=== PATIENT | male | born 1950 | race Caucasian/White ===

== ENCOUNTER 2021-07-31 22:10 | Inpatient (IN) | payer MEDICARE, BC ==
[~2021-07-31] VITALS: Ht 180.3 cm; Wt 79.4 kg
[2021-08-01] MEDS ORDERED: BISA10SU11 RC (01:55)
[2021-08-01] MEDS ORDERED: POLY510P31 PO (01:56)
[2021-08-01] MEDS ORDERED: HYDR-3972 PO (01:59)
[2021-08-01] MEDS ORDERED: LISI1TAB29 PO (02:00)
[2021-08-01] MEDS ORDERED: MAG HYDROX/AL HYDROX/SIMETH 30 ML UDC PO PRN (02:00)
[2021-08-01] MEDS ORDERED: ACETAMINOPHEN 325 MG TABLET PO PRN (02:00)
[2021-08-01] MEDS ORDERED: AMLO-213 PO (02:01)
[2021-08-01] MEDS ORDERED: ATOR40TA PO (02:02)
[2021-08-01] MEDS ORDERED: [UNRECOGNIZED DRUG - CODE] PO (02:04)
[2021-08-01] MEDS ORDERED: BUPR150T10 PO (02:05)
[2021-08-01] MEDS ORDERED: ESCI10TA PO (02:12)
[2021-08-01] MEDS ORDERED: BLOOD SUGAR DIAGNOSTIC 1 EACH STRIP IN ONE (02:30)
--- NOTE | 2021-08-01 02:37 | NUR ---
GPS RN NOTE, PATIENT IS A DIRECT ADMIT AND NEEDS MED RECON APPROVED. PAGED [facility] AND INFORMED JOHN ORTEGA DNP OF MY FINDINGS. JOHN ORTEGA DNP SAID SHE WILL APPROVE THE PATIENT'S MED RECON CIELO. WILL CONTINUE TO MONITOR THIS PATIENT WITH THE HELP OF STAFF.
[2021-08-01] MEDS: clonazePAM 0.5 MG TABLET PO PRN ×2 (03:02→21:14)
--- NOTE | 2021-08-01 03:03 | NUR ---
RN NOTES: ANXIETY PT. C/O FEELING ANXIOUS , RESTLESS, PRN KLONOPIN 0.5 MG PO GIVEN , WILL CONTINUE TO MONITOR.
--- NOTE | 2021-08-01 04:09 | NUR ---
RN NOTES : ADMISSION NOTES: ADMITTED THIS 71Y/O MALE PATIENT ADMIT FROM [facility] [place] ADMITTED TO GPS ON 5150 HOLD, PER HOLD DTS, DTO,SUICIDAL IDEATION AND SEVER DEPRESSD MOOD WITH SI THOUGHTS X1 WEEK HAD PLAN WITHOUT INTENT THIS MORNING TO USE GUN TO SHOOT HIMSELF ,UPON FACE TO FACE ASSESSMENT PATIENT IS A&O X 3, DEPRESSED, COOPERTIVE ,DISHELVED ,EASILY AGITATED , POOR HYGINE , DENIES SI /HI AT THIS TIME, PT. IS POOR HISTORIAN, POOR INSIGHT ,POOR JUDGEMENT , BOTH MD AWARE AND NOTIFIED OF THE ADMISSION, BELONGINGS CONTRABAND WERE DONE , PT. REFUSED TO SIGNS ADMISSION CONSENT PAPERS DUE TO TIRED , PT. IS POOR HISTORIAN, POOR INSIGHT ,POOR JUDGEMENT , BOTH MD AWARE AND NOTIFIED OF THE ADMISSION, BELONGINGS CONTRABAND WERE DONE ,ENCOURAGED PT. TO TAKE SHOWER, PT. RIGHTS DISCUSS BY RADIOLOGIC ELECTRONIC SPECIALIST , PROVIDE THE PT. WITH HANDBOOK GUIDE, ENVIRONMENTAL SAFETY CHECK DONE, ENCOURAGED PT. VERBALIZED ANY FEELING CONCERN TO STAFF, ORIENT TO UNIT POLICY, NO ACUTE DISTRESS NOTED,VITAL SIGNS WNL ,DENIES ANY PAIN AT THIS TIME,WILL CONTINUE TO MONITOR FOR Q15 SAFETY AND BEHAVIOR.
[2021-08-01 04:20] VITALS: BP 138/76
[2021-08-01] MEDS ORDERED: HYDROCODONE/APAP 5/325MG TABLET PO PRN (06:30)
[2021-08-01] MEDS ORDERED: BISACODYL SUPP (10 MG) 10 MG/SUPP.RECT SUPP.RECT RC PRN (06:30)
--- NOTE | 2021-08-01 07:02 | NUR ---
RN NOTES: PLACE CALLED TO MR. LEONE CHRIS AND LEFT VOICE MAIL MESSAGES, REGARDING ABOUT PT. ADMIT TO DANIEL PSYCH .
[2021-08-01 07:04] LABS: BASOPHILS % (AUTO) 0.5 % (0.0-2.0); EOSINOPHILS % (AUTO) 1.8 % (0.0-6.0); HEMATOCRIT 33 % (39-51); HEMOGLOBIN 10.7 g/dL (13.5-17.5); LYMPHOCYTES # (AUTO) 1.2 K/uL (0.8-4.8); LYMPHOCYTES % (AUTO) 17.2 % (20.0-44.0); MEAN CORPUSCULAR HGB CONC 33 g/dl (31.0-36.0); MEAN CORPUSCULAR VOLUME 94 fL (80-96); MONOCYTES # (AUTO) 1.3 K/uL (0.1-1.30); MONOCYTES % (AUTO) 19.1 % (2.0-12.0); NEUTROPHILS # (AUTO) 4.3 K/uL (1.8-8.9); NEUTROPHILS % (AUTO) 61.4 % (43.0-81.0); PLATELET COUNT (AUTO) 365 K/uL (150-450); RED BLOOD CELL COUNT(AUTO) 3.45 MIL/uL (4.5-6.0)
--- NOTE | 2021-08-01 07:04 | NUR ---
RN NOTES: PLACE CALLED TO MR. LEONE CHRIS AND LEFT VOICE MAIL MESSAGE AT, REGARDING ABOUT PT. ADMIT TO DANIEL PSYCH .
[2021-08-01 07:13] LABS: CALCIUM, SERUM 8.5 mg/dL (8.5-10.1); CARBON DIOXIDE 28 mmol/L (21-32); CHLORIDE 99 mmol/L (98-107); CREATININE 0.7 mg/dL (0.6-1.3); GLUCOSE 135 mg/dL (74-106); POTASSIUM 3.5 mmol/L (3.5-5.1); SODIUM SERUM 131 mmol/L (136-145); UREA NITROGEN, BLOOD 7 mg/dL (7-18)
[2021-08-01 07:42] LABS: CHOLESTEROL 99 mg/dL (<200); HDL CHOLESTEROL 43 mg/dL (40-60); LDL 46 mg/dL (0-99); TRIGLYCERIDES 57 mg/dL (30-150)
--- NOTE | 2021-08-01 07:43 | NUR ---
WOUND CARE CONSULT: PT PRESENTS WITH RT BUTTOCK ESCHAR AND INDURATION. PT STATES THAT HE FELL PRIOR TO ADMISSION TO [facility]. NO DRAINAGE NOTED. SURGICAL CONSULT REQUESTED FROM DR KATIA VARGAS. IN AGREEMENT WITH PLAN OF CARE.
[2021-08-01 08:00] VITALS: BP 144/79
[2021-08-01] MEDS ORDERED: PROBENECID 500 MG TABLET PO SCH (09:00)
--- NOTE | 2021-08-01 09:22 | NUR ---
TOM Initial Discharge: Patient currently resides at home alone located at [address] [address] [facility], [place] [address]; ([phone]). Patient would want to return back home upon discharge. TOM will work with the MD and treatment team to coordinate appropriate discharge. Addendum: 08/01/21 at 1107 by TOM IQBAL Patient's correct address: Patient will return back home located at [address] [place] [address], [address]; ([phone]).
--- NOTE | 2021-08-01 09:48 | NUR ---
TOM Friend Contact: Per pt's request he wanted this documentation writer to notify childhood friend Chadwick ([phone]) that he is at the hospital. SW spoke with Chadwick and notified that pt is at the hospital. He is aware. TOM briefly discussed treatment/discharge plan.
--- NOTE | 2021-08-01 09:51 | NUR ---
TOM Family Contact: Per pt's request, he wanted this lyric writer to contact sister Adriana ([phone]) and this lyric writer left a voicemail.
[2021-08-01] MEDS: ATORVASTATIN 40 MG TABLET PO SCH (10:08)
[2021-08-01] MEDS: AMLODIPINE BESYLATE 10 MG TABLET PO SCH (10:09)
[2021-08-01] MEDS: LISINOPRIL (20MG) 20 MG TABLET PO SCH (10:09)
[2021-08-01] MEDS: HYDROCHLOROTHIAZIDE 25 MG TABLET PO SCH (10:09)
--- NOTE | 2021-08-01 10:14 | NUR ---
Social Work Note/Substance Abuse Intervention: Patient was provided with a brief substance abuse intervention and referred to [facility] ([phone]), [facility] ([phone]), and [facility] ([phone]) for having history of drinking and drinking occasionally.
[2021-08-01] MEDS ORDERED: COLCHICINE 0.6 MG TABLET PO SCH (10:30)
--- NOTE | 2021-08-01 10:36 | NUR ---
POLICE STATION: TOM CONTACTED [place] [employer]ICE DEPARTMENT ([phone]) AND SPOKE WITH OFFICER NTAALIA (BADGE #[id number]) WHO STATED REPORT WAS TAKEN #[id number] AND STATED THAT MULTIPLE GUNS WERE CONFISCATED FROM HIS HOME.
--- NOTE | 2021-08-01 11:05 | NUR ---
TOM Note: SW offered pt resources such as home health upon discharge. He stated "I am totally capable of taking care of myself and do not need these services".
--- NOTE | 2021-08-01 11:07 | NUR ---
TOM Clinical Note: Patient placed on a 5150 hold for danger to himself. Patient had thoughts of harming himself with a gun at home. Patient's correct address: Patient will return back home located at [facility] [address], [place], [address]; ([phone]). TOM confirmed with police department in [place] that guns have been removed from the house (separate note is in [facility] of more information).
[2021-08-01] MEDS: ESCITALOPRAM OXALATE (10 MG) 10 MG TABLET PO SCH (11:15)
[2021-08-01] MEDS: buPROPion 75 MG TABLET PO SCH ×2 (11:15→17:25)
[2021-08-01 16:00] VITALS: BP 132/71
[2021-08-01] MEDS: MAGNESIUM HYDROXIDE 30 ML UDC PO PRN (17:25)
--- NOTE | 2021-08-01 17:26 | NUR ---
RN-NOTES PATIENT C/O CONSTIPATION. MOM 30 ML GIVEN PRN ORDER.
--- NOTE | 2021-08-01 17:50 | NUR ---
RNM-NOTES PATIENT LAYING IN BED AWAKE,ALERT,GUARDED,CALM NO ACUTE DISTRESS NOTED. COMPLIANT WITH MEDICATIONS. ABLE TO MAKE NEEDS KNOWN. AMBULATORY STEADY GAIT.ALL NEEDS ATTENDED AND ANTICIPATED. WILL CONT. MONITORING FOR SAFETY AND BEHAVIOR. WILL ENDORSED TO INCOMING NURSE FOR CONTINUITY OF CARE.
--- NOTE | 2021-08-01 18:28 | NUR ---
RN-NOTES SEEN BY RUDDY YOUNGBLOOD ( SURGEON) WITH T.O ORDER OF HOT PACKS APPLY TO RIGHT BUTTOCKS X4 TIMES A DAY. NOTED AND CARRIED OUT.
--- NOTE | 2021-08-01 19:48 | NUR ---
RN NOTES: PATIENT WALKING IN HALLWAY , NO S/SX OF ACUTE DISTRESS NOTED. COOPERTIVE NOTED AT THIS TIME, DEPRESSED, DENIES SI //HI AT THIS TIME ENCOURAGED PT. TO VERBALIZATION OF THOUGHTS AND FEELINGS. SAFETY PRECAUTIONS IN PLACE. WILL CONTINUE TO MONITOR Q15MIN ROUNDS FOR SAFETY AND BEHAVIOR.
[2021-08-01 20:12] VITALS: BP 124/80
--- NOTE | 2021-08-01 21:14 | NUR ---
RN NOTES: ANXIETY PT. C/O FEELING ANXIOUS , RESTLESS, PRN KLONOPIN 0.5 MG PO GIVEN , WILL CONTINUE TO MONITOR.
--- NOTE | 2021-08-01 22:00 | NUR ---
RN NOTES: PT. REPORTED HAS BM X 1, DENIES ANY DISCOMFORT ,
--- NOTE | 2021-08-01 22:30 | NUR ---
RN NOTES: HOT PACK APPLIED TO RIGHT BUTTOCK PER JESSE REQUEST AND PER MD ORDER .
[2021-08-01] MEDS: TEMAZEPAM 7.5 MG CAPSULE PO PRN (23:41)
--- NOTE | 2021-08-01 23:41 | NUR ---
RN NOTES: INSOMNIA: PT. C/O UNABLE TO SLEEP , PRN RESTORIL 7.5 MG PO GIVEN PER PT. REQUEST, WILL CONTINUE TO MONITOR.
--- NOTE | 2021-08-02 03:52 | NUR ---
RN NOTES : PT. C/O RIGHT HIP PAIN 09/21 , NARCO GIVEN PER PT. REQUEST , WILL CONTINUE TO MONITOR.
--- NOTE | 2021-08-02 05:00 | NUR ---
RN NOTES: HOT PACK APPLIED TO RIGHT BUTTOCK PER PATIENT REQUEST AND PER MD ORDER, PATIENT TOLERATED WELL.
[2021-08-02 07:01] LABS: BASOPHILS % (AUTO) 0.5 % (0.0-2.0); EOSINOPHILS % (AUTO) 1.7 % (0.0-6.0); HEMATOCRIT 36 % (39-51); HEMOGLOBIN 12.2 g/dL (13.5-17.5); LYMPHOCYTES # (AUTO) 1.5 K/uL (0.8-4.8); LYMPHOCYTES % (AUTO) 19.4 % (20.0-44.0); MEAN CORPUSCULAR HGB CONC 34 g/dl (31.0-36.0); MEAN CORPUSCULAR VOLUME 93 fL (80-96); MONOCYTES # (AUTO) 1.3 K/uL (0.1-1.30); MONOCYTES % (AUTO) 16.6 % (2.0-12.0); NEUTROPHILS # (AUTO) 4.9 K/uL (1.8-8.9); NEUTROPHILS % (AUTO) 61.8 % (43.0-81.0); PLATELET COUNT (AUTO) 402 K/uL (150-450); RED BLOOD CELL COUNT(AUTO) 3.93 MIL/uL (4.5-6.0); WHITE BLOOD COUNT (AUTO) 7.9 K/uL (4.3-11.0)
[2021-08-02 07:33] LABS: CALCIUM, SERUM 9.2 mg/dL (8.5-10.1); CREATININE 0.8 mg/dL (0.6-1.3); MAGNESIUM 2.3 mg/dL (1.8-2.4); PHOSPHORUS 4.3 mg/dL (2.5-4.9); POTASSIUM 3.5 mmol/L (3.5-5.1)
[2021-08-02 08:00] VITALS: BP 129/77
[2021-08-02] MEDS: ATORVASTATIN 40 MG TABLET PO SCH (08:12)
[2021-08-02] MEDS: ESCITALOPRAM OXALATE (10 MG) 10 MG TABLET PO SCH (08:12)
[2021-08-02] MEDS: LISINOPRIL (20MG) 20 MG TABLET PO SCH (08:13)
[2021-08-02] MEDS: HYDROCHLOROTHIAZIDE 25 MG TABLET PO SCH (08:13)
[2021-08-02] MEDS: AMLODIPINE BESYLATE 10 MG TABLET PO SCH (08:13)
[2021-08-02] MEDS: buPROPion 75 MG TABLET PO SCH ×2 (08:15→16:21)
[2021-08-02] MEDS ORDERED: AMLODIPINE BESYLATE 5 MG TABLET PO SCH (09:00)
--- NOTE | 2021-08-02 09:30 | NUR ---
RN-NOTES T.O ORDER FROM DR. GARCIA TO D/C NORVASC 5MG DAILY. NOTED AND CARRIED OUT.
[2021-08-02] MEDS: clonazePAM 0.5 MG TABLET PO PRN ×2 (12:48→20:26)
--- NOTE | 2021-08-02 12:50 | NUR ---
RN-NOTES PATIENT C/O OF ANXIETY AND REQUESTING FOR MEDICATION. KLONOPIN 0.5MG P.O GIVEN PRN ORDER. WILL CONT. MONITORING FOR SAFETY AND BEHAVIOR.
[2021-08-02] MEDS ORDERED: IV NS 0.9% 1,000 ML IV SCH (13:30)
--- NOTE | 2021-08-02 13:50 | NUR ---
RN-NOTES PATIENT IN THE DAY ROOM WATCHING TV,CALM,NO ACUTE DISTRESS NOTED.
--- NOTE | 2021-08-02 14:07 | NUR ---
Dr. Hauser changed the order of NS 1 liter @ 100ml/hr x1 liter
[2021-08-02] MEDS ORDERED: IV NS 0.9% 1,000 ML IV ONE (14:30)
--- NOTE | 2021-08-02 14:30 | NUR ---
IV of Gauge #22 started on the right forearm, with good blood return and pt. tolerated well.
[2021-08-02 16:00] VITALS: BP 138/59
--- NOTE | 2021-08-02 17:51 | NUR ---
RN-NOTES PATIENT LAYING IN BED AWAKE,ALERT X3,WITH ONGOING IV FLUID OF 0.9% NS @ 100ML/HR, INFUSING WELL,WELL TOLERATED. IV SITE ON RIGHT RA GAUGE 22. NO S/S OF COMPLICATION NOTED ON THE IV SITE.,CALM NO ACUTE DISTRESS NOTED. COMPLIANT WITH MEDICATIONS. ABLE TO MAKE NEEDS KNOWN. AMBULATORY STEADY GAIT.ALL NEEDS ATTENDED AND ANTICIPATED. WILL CONT. MONITORING FOR SAFETY AND BEHAVIOR. WILL ENDORSED TO INCOMING NURSE FOR CONTINUITY OF CARE.
--- NOTE | 2021-08-02 19:43 | NUR ---
RN-NOTES RECEIVED PT.WITH ONGOING IV FLUID OF 0.9% NS @ 100ML/HR, INFUSING AND TOLERATED WELL, IV SITE ON RIGHT FA GAUGE #22., PT. AWAKE ALERT X3, NO S/S OF COMPLICATION NOTED ON THE IV SITE.CALM COOPERTIVE NO ACUTE DISTRESS NOTED. COMPLIANT WITH MEDICATIONS .ALL NEEDS ATTENDED AND ANTICIPATED. WILL CONT. MONITORING FOR SAFETY AND BEHAVIOR. WILL CONTINUITY WITH CARE.
[2021-08-02 20:15] VITALS: BP 135/60
--- NOTE | 2021-08-02 20:26 | NUR ---
RN NOTE: ANXIETY PT. C/O FEELING ANXIOUS , RESTLESS, PRN KLONOPIN 0.5 MG PO GIVEN , WILL CONTINUE TO MONITOR.
--- NOTE | 2021-08-02 21:00 | NUR ---
RN NOTES: HOT PACK APPLIED TO RIGHT BUTTOCK PER PATIENT REQUEST AND PER MD ORDER, PATIENT TOLERATED WELL.
[2021-08-02] MEDS: TEMAZEPAM 7.5 MG CAPSULE PO PRN (23:13)
--- NOTE | 2021-08-02 23:14 | NUR ---
RN NOTES: INSOMNIA: PT. C/O UNABLE TO SLEEP , PRN RESTORIL 7.5 MG PO GIVEN PER PT. REQUEST, WILL CONTINUE TO MONITOR.
--- NOTE | 2021-08-03 04:09 | NUR ---
RN-NOTES PT. IV FLUID OF 0.9% NS FINISHED, PT. TOLERATED WELL, PT. SLEEPING AT THIS TIME, NO S/S OF COMPLICATION NOTED, NO ACUTE DISTRESS NOTED. COMPLIANT WITH MEDICATIONS .ALL NEEDS ATTENDED AND ANTICIPATED.
--- NOTE | 2021-08-03 06:40 | NUR ---
RN NOTES: HOT PACK APPLIED TO RIGHT BUTTOCK PER PATIENT REQUEST AND PER MD ORDER, PATIENT TOLERATED WELL.
[2021-08-03 07:19] LABS: CARBON DIOXIDE 30 mmol/L (21-32); CHLORIDE 96 mmol/L (98-107); CREATININE 0.6 mg/dL (0.6-1.3); GLUCOSE 105 mg/dL (74-106); POTASSIUM 3.3 mmol/L (3.5-5.1); SODIUM SERUM 132 mmol/L (136-145); UREA NITROGEN, BLOOD 9 mg/dL (7-18)
[2021-08-03 08:00] VITALS: BP 120/70
[2021-08-03] MEDS: ESCITALOPRAM OXALATE (10 MG) 10 MG TABLET PO SCH (08:24)
[2021-08-03] MEDS: LISINOPRIL (20MG) 20 MG TABLET PO SCH (08:24)
[2021-08-03] MEDS: AMLODIPINE BESYLATE 10 MG TABLET PO SCH (08:24)
[2021-08-03] MEDS: ATORVASTATIN 40 MG TABLET PO SCH (08:24)
[2021-08-03] MEDS: buPROPion 75 MG TABLET PO SCH ×2 (08:25→16:25)
--- NOTE | 2021-08-03 09:03 | NUR ---
RN-CO: PATIENT IS AWAKE , DENIED PAIN AND DISCOMFORTS. SPOKE TO DT MODESTO I. AFFECT IS BLUNTED , DEPRESSED, WORRIED, HE IS COMPLIANT WITH MEDICATIONS AND TREATMENT. ENCOURAGED TO VENTILATE FEELINGS. I WILL CONTINUE TO MONITOR.
[2021-08-03] MEDS ORDERED: POTASSIUM CHLORIDE 20 MEQ TAB.PRT.SR PO SCH (09:30)
[2021-08-03 16:00] VITALS: BP 131/74
--- NOTE | 2021-08-03 19:20 | NUR ---
GPS RN NOTES RECEIVED PATIENT IN BED AWAKE, A/OX3, ABLE TO MAKE NEEDS KNOWN. NO S/SX OF ACUTE DISTRESS NOTED. PATIENT IS VISIBLE IN THE UNIT. REMAINS ANXIOUS, DEPRESSED, COOPERATIVE. NO VERBALIZATION OF THOUGHTS AND FEELINGS. ENCOURAGED PT TO ATTEND IN GROUP ACTIVITIES. SAFETY PRECAUTIONS IN PLACE. WILL CONTINUE TO MONITOR Q15MIN ROUNDS FOR SAFETY AND BEHAVIOR.
[2021-08-03 19:48] VITALS: BP 148/86
[2021-08-04] MEDS: clonazePAM 0.5 MG TABLET PO PRN (02:25)
[2021-08-04 08:00] VITALS: BP 117/66
[2021-08-04] MEDS: LISINOPRIL (20MG) 20 MG TABLET PO SCH (08:46)
[2021-08-04] MEDS: ESCITALOPRAM OXALATE (10 MG) 10 MG TABLET PO SCH (08:46)
[2021-08-04] MEDS: ATORVASTATIN 40 MG TABLET PO SCH (08:46)
[2021-08-04] MEDS: AMLODIPINE BESYLATE 10 MG TABLET PO SCH (08:47)
[2021-08-04] MEDS: buPROPion 75 MG TABLET PO SCH ×2 (08:47→16:07)
--- NOTE | 2021-08-04 15:26 | NUR ---
Individual Counseling: SW met with pt. to facilitate individual counseling. The pt. is alert & oriented, Pt. appears well-groomed, remained calm & cooperative. Pt. makes good eye contact and anxious at times. tail worker highlighted important factors shared by pt. and linked these to his presenting problem.
[2021-08-04 16:00] VITALS: BP 122/75
[2021-08-04 19:38] VITALS: BP 147/70
--- NOTE | 2021-08-04 20:09 | NUR ---
GPS RN OPENING NOTES: RECEIVED PATIENT IN BED, AWAKE, A/O X3, APPEARS DEPRESSED, CALM. NO S/S OF DISTRESS. DENIES PAIN AT THIS TIME, DENIES SI/HI AT THIS TIME. RESPIRATION EVEN AND UNLABORED WITH EQUAL RISE AND FALL OF THE CHEST, ON ROOM AIR. OFFERED FLUID AND SNACKS TOLERATED. BED ON LOWEST POSITION AND LOCKED, SIDE RAILS UP X2 FOR SAFETY, CALL FAYE WITHIN REACH. WILL CONTINUE TO MONITOR Q15 FOR MOOD, SAFETY AND BEHAVIOR.
[2021-08-04] MEDS: TEMAZEPAM 7.5 MG CAPSULE PO PRN (22:45)
--- NOTE | 2021-08-04 22:50 | NUR ---
GPS RN NOTES: PATIENT REQUESTED FOR SLEEP MEDICATION, RESTORIL 7.5MG GIVEN PO AT 2245. WILLCONTINUE TO MONITOR.
[2021-08-05 07:18] LABS: CALCIUM, SERUM 9.3 mg/dL (8.5-10.1); CARBON DIOXIDE 31 mmol/L (21-32); CHLORIDE 98 mmol/L (98-107); CREATININE 0.8 mg/dL (0.6-1.3); GLUCOSE 103 mg/dL (74-106); POTASSIUM 4.5 mmol/L (3.5-5.1); SODIUM SERUM 134 mmol/L (136-145); UREA NITROGEN, BLOOD 10 mg/dL (7-18)
[2021-08-05 08:00] VITALS: BP 126/76
[2021-08-05] MEDS: AMLODIPINE BESYLATE 10 MG TABLET PO SCH (08:04)
[2021-08-05] MEDS: buPROPion 75 MG TABLET PO SCH ×2 (08:04→16:19)
[2021-08-05] MEDS: ESCITALOPRAM OXALATE (10 MG) 10 MG TABLET PO SCH (08:05)
[2021-08-05] MEDS: ATORVASTATIN 40 MG TABLET PO SCH (08:05)
[2021-08-05] MEDS: LISINOPRIL (20MG) 20 MG TABLET PO SCH (08:09)
--- NOTE | 2021-08-05 11:03 | NUR ---
Court Notification: SW contacted pt's person to notify Chadwick, friend, ([phone]) to notify of 5250 hearing and left a voicemail.
[2021-08-05 16:00] VITALS: BP 138/86
--- NOTE | 2021-08-05 19:32 | NUR ---
GPS RN OPENING NOTES: RECEIVED PATIENT IN DAY ROOM WATCHING TV WITH PEERS, A/O X3, APPEARS DEPRESSED, PASSIVE, COOPERATIVE. PATIENT ENCOURAGED TO VERBALIZE FEELINGS. NO S/S OF DISTRESS. DENIES PAIN AT THIS TIME, DENIES SI/HI AT THIS TIME. RESPIRATION EVEN AND UNLABORED WITH EQUAL RISE AND FALL OF THE CHEST, ON ROOM AIR. OFFERED FLUID AND SNACKS TOLERATED. WILL CONTINUE TO MONITOR Q15 FOR MOOD, SAFETY AND BEHAVIOR. Addendum: 08/05/21 at 2304 by TA CARLSON RN DISREGARD. CHARTED UNDER ANOTHER STAFF
[2021-08-05 20:22] VITALS: BP 112/70
[2021-08-05] MEDS: TEMAZEPAM 7.5 MG CAPSULE PO PRN (23:16)
--- NOTE | 2021-08-05 23:17 | NUR ---
GPS RN NOTES: Patient requested for sleep med. Restoril 7.5mg given PO at 2316. Will continue to monitor.
[2021-08-06 08:00] VITALS: BP 139/78
[2021-08-06] MEDS: AMLODIPINE BESYLATE 10 MG TABLET PO SCH (08:24)
[2021-08-06] MEDS: buPROPion 75 MG TABLET PO SCH ×2 (08:24→17:08)
[2021-08-06] MEDS: ATORVASTATIN 40 MG TABLET PO SCH (08:25)
[2021-08-06] MEDS: ESCITALOPRAM OXALATE (10 MG) 10 MG TABLET PO SCH (08:25)
[2021-08-06] MEDS: LISINOPRIL (20MG) 20 MG TABLET PO SCH (08:25)
--- NOTE | 2021-08-06 08:26 | NUR ---
Court Hearing: Patient's court hearing was 08/05/2021 and it was upheld for danger to self.
--- NOTE | 2021-08-06 10:18 | NUR ---
RN-CO: PATIENT A/O X3-4. WORRIED, PREOCCUPIED AND DEPRESSED BUT DENIED SI. HE EATS GOOD AND PARTICIPATE IN GROUPS. HE IS SOCIALIZING WITH PEERS.
--- NOTE | 2021-08-06 10:30 | NUR ---
SW Note: SW offered pt nursing facility options and pt reported that he wants to go back home and does not need a nursing facility. He reported that he is fully able to take care of his needs and has support. SW offered home health resources and he was agreeable of this.
[2021-08-06] MEDS: MAGNESIUM HYDROXIDE 30 ML UDC PO PRN (14:28)
--- NOTE | 2021-08-06 14:28 | NUR ---
RNWendiCO: PT Requested for MOM.
[2021-08-06 16:00] VITALS: BP 129/66
[2021-08-06 20:00] VITALS: BP 135/75
[2021-08-06] MEDS: TEMAZEPAM 7.5 MG CAPSULE PO PRN (23:19)
--- NOTE | 2021-08-07 05:49 | NUR ---
Closing Notes: Alert and Oriented X4 ambulates the corridor steady on his feet make his needs known Quick to smile socializes with his roommate
[2021-08-07 08:00] VITALS: BP 145/75
[2021-08-07] MEDS: ATORVASTATIN 40 MG TABLET PO SCH (08:20)
[2021-08-07] MEDS: LISINOPRIL (20MG) 20 MG TABLET PO SCH (08:20)
[2021-08-07] MEDS: ESCITALOPRAM OXALATE (10 MG) 10 MG TABLET PO SCH (08:20)
[2021-08-07] MEDS: buPROPion 75 MG TABLET PO SCH ×2 (08:20→16:31)
[2021-08-07] MEDS: AMLODIPINE BESYLATE 10 MG TABLET PO SCH (08:21)
--- NOTE | 2021-08-07 10:15 | NUR ---
RN Notes: Received pt. awake in bed, pleasant upon approached. Ate 100% for breakfast, compliant on meds. Encouraged to verbalize feelings and motivated to attend group activity. Needs attended, no distress and no agitation noted and will continue to monitor for safety.
[2021-08-07 16:00] VITALS: BP 121/80
[2021-08-07 20:00] VITALS: BP 128/73
--- NOTE | 2021-08-07 20:14 | NUR ---
RN NOTES: PATIENT WATCHING TV IN DAY ROOM. NO S/SX OF ACUTE DISTRESS NOTED. PATIENT IS VISIBLE IN THE UNIT. REMAINS ANXIOUS, DEPRESSED, COOPERATIVE. NO VERBALIZATION OF THOUGHTS AND FEELINGS. ENCOURAGED PT TO ATTEND IN GROUP ACTIVITIES. SAFETY PRECAUTIONS IN PLACE. WILL CONTINUE TO MONITOR Q15MIN ROUNDS FOR SAFETY AND BEHAVIOR.
[2021-08-07] MEDS: TEMAZEPAM 7.5 MG CAPSULE PO PRN (22:57)
--- NOTE | 2021-08-07 22:58 | NUR ---
RN NOTES: INSOMNIA: PT. C/O UNABLE TO SLEEP , PRN RESTORIL 7.5 MG PO GIVEN PER PT. REQUEST, WILL CONTINUE TO MONITOR.
[2021-08-08 08:00] VITALS: BP 122/72
--- NOTE | 2021-08-08 08:57 | NUR ---
TOM Coordination of Care: Patient will follow up with (Manager Transportation Planning) Dr. Gerda Bird located at [address] [facility], [address], [place] [address]; ([phone]) on August 19, 2021, at 10AM. Patient was referred to for intake evaluation (Psychiatry) at [facility] located at [address] [place] [address]; ([phone]) on August 18 at 1:30PM via TELEHEALTH. SW sent patient up with [facility] was arranged (P:[phone], F: [phone]) for medication management, physical therapy, and nursing follow ups they will follow up with pt.
--- NOTE | 2021-08-08 09:00 | NUR ---
GPS/RN RECEIVED PT RESTING IN BED, NO S/S DISTRESS NOTED. DENIES SI/HI/AVH. ALERT,GUARDED,CALM NO ACUTE DISTRESS NOTED. COMPLIANT WITH DAILY MEDS. AMBULATORY STEADY GAIT.ALL NEEDS ATTENDED AND ANTICIPATED. WILL CONTINUE MONITORING Q15MIN FOR SAFETY AND BEHAVIOR.
[2021-08-08] MEDS: ESCITALOPRAM OXALATE (10 MG) 10 MG TABLET PO SCH (09:35)
[2021-08-08] MEDS: buPROPion 75 MG TABLET PO SCH ×2 (09:35→17:52)
[2021-08-08] MEDS: ATORVASTATIN 40 MG TABLET PO SCH (09:35)
[2021-08-08] MEDS: AMLODIPINE BESYLATE 10 MG TABLET PO SCH (09:36)
[2021-08-08] MEDS: LISINOPRIL (20MG) 20 MG TABLET PO SCH (09:36)
--- NOTE | 2021-08-08 10:26 | NUR ---
TOM Family Contact: TOM contacted pt's sister Adriana ([phone]) and notified of pt's discharge plan. TOM left a voicemail. TOM contacted pt's son Jackson ([phone]) and notified of pt's discharge and plan. He is aware and agreeable. He stated that he will pick pt up 08/12 between 9-9:30AM and this is the only time due to him having work.
--- NOTE | 2021-08-08 14:17 | NUR ---
TOM Family Contact: SW received a call from pt's sister Adriana ([phone]) and discussed pt's discharge and treatment plan.
[2021-08-08 16:00] VITALS: BP 116/78
[2021-08-08 20:00] VITALS: BP 132/56
--- NOTE | 2021-08-08 20:07 | NUR ---
RN NOTES: PATIENT WATCHING TV IN DAY ROOM. NO S/SX OF ACUTE DISTRESS NOTED. PATIENT IS VISIBLE IN THE UNIT, CALM/COOPERATIVE AT THIS TIME, PER PT. FEELING BETTER ,NO VERBALIZATION OF THOUGHTS AND FEELINGS. ENCOURAGED PT. TO ATTEND IN GROUP ACTIVITIES. SAFETY PRECAUTIONS IN PLACE. WILL CONTINUE TO MONITOR Q15MIN ROUNDS FOR SAFETY AND BEHAVIOR.
[2021-08-08] MEDS: TEMAZEPAM 7.5 MG CAPSULE PO PRN (22:39)
--- NOTE | 2021-08-08 22:40 | NUR ---
RN NOTES: INSOMNIA: PT. C/O UNABLE TO SLEEP , PRN RESTORIL 7.5 MG PO GIVEN PER PT. REQUEST, WILL CONTINUE TO MONITOR.
[2021-08-09 08:00] VITALS: BP 131/72
[2021-08-09] MEDS: buPROPion 75 MG TABLET PO SCH ×2 (08:09→16:34)
[2021-08-09] MEDS: ESCITALOPRAM OXALATE (10 MG) 10 MG TABLET PO SCH (08:09)
[2021-08-09] MEDS: ATORVASTATIN 40 MG TABLET PO SCH (08:10)
[2021-08-09] MEDS: AMLODIPINE BESYLATE 10 MG TABLET PO SCH (08:10)
[2021-08-09] MEDS: LISINOPRIL (20MG) 20 MG TABLET PO SCH (08:10)
--- NOTE | 2021-08-09 09:30 | NUR ---
RN Notes: Received pt. asleep in bed, breathing is even and unlabored. Ate 100% for breakfast, compliant on meds. Encouraged to verbalize feelings and motivated to attend group activity. Hot pack given and needs attended. No distress and no agitation noted. Will continue to monitor for safety.
[2021-08-09 16:00] VITALS: BP 124/77
[2021-08-09 20:13] VITALS: BP_SYST 134; BP_SYST 144; BP_DIAS 83
[2021-08-09] MEDS: TEMAZEPAM 7.5 MG CAPSULE PO PRN (22:34)
--- NOTE | 2021-08-09 22:35 | NUR ---
RN NOTES: INSOMNIA: PT. C/O UNABLE TO SLEEP , PRN RESTORIL 7.5 MG PO GIVEN PER PT. REQUEST, WILL CONTINUE TO MONITOR.
--- NOTE | 2021-08-09 22:36 | NUR ---
RN NOTES: HOT PACK APPLIED TO RIGHT BUTTOCK PER PATIENT REQUEST, AND PER MD ORDER, PATIENT TOLERATED WELL.
[2021-08-10 08:00] VITALS: BP 126/79
[2021-08-10] MEDS: ESCITALOPRAM OXALATE (10 MG) 10 MG TABLET PO SCH (08:52)
[2021-08-10] MEDS: LISINOPRIL (20MG) 20 MG TABLET PO SCH (08:53)
[2021-08-10] MEDS: AMLODIPINE BESYLATE 10 MG TABLET PO SCH (08:53)
[2021-08-10] MEDS: buPROPion 75 MG TABLET PO SCH ×2 (08:53→16:12)
[2021-08-10] MEDS: ATORVASTATIN 40 MG TABLET PO SCH (08:53)
--- NOTE | 2021-08-10 09:00 | NUR ---
GPS/RN RECEIVED PT RESTING IN BED, NO S/S DISTRESS NOTED. DENIES SI/HI/AVH. ALERT, GUARDED, CALM NO ACUTE DISTRESS NOTED. COMPLIANT WITH DAILY MEDS. AMBULATORY STEADY GAIT.ALL NEEDS ATTENDED AND ANTICIPATED. WILL CONTINUE MONITORING Q15MIN FOR SAFETY AND BEHAVIOR.
[2021-08-10 16:00] VITALS: BP 126/71
--- NOTE | 2021-08-10 19:40 | NUR ---
GPS RN OPENING NOTES: RECEIVED PATIENT SITTING IN DAY ROOM AND WATCHING TV. A/O X3, APPEARS DEPRESSED, PASSIVE, INTERACTING WITH PEERS, COOPERATIVE. DENIES PAIN AT THIS TIME. NO S/S OF DISTRESS. RESPIRATION EVEN AND UNLABORED WITH EQUAL RISE AND FALL OF THE CHEST, ON ROOM AIR. OFFERED FLUID AND SNACKS TOLERATED. WILL CONTINUE TO MONITOR Q15 FOR MOOD, SAFETY AND BEHAVIOR.
[2021-08-10 20:17] VITALS: BP 125/82
[2021-08-10] MEDS: TEMAZEPAM 7.5 MG CAPSULE PO PRN (22:47)
--- NOTE | 2021-08-10 22:50 | NUR ---
GPS RN NOTES: PATIENT REQUESTED FOR SLEEP MEDICATION. RESTORIL 7.5MG GIVEN PO AT 2247. WILL CONTINUE TO MONITOR.
--- NOTE | 2021-08-11 06:49 | NUR ---
GPS RN CLOSING NOTES: PATIENT IN BED, AWAKE, A/O X3. PATIENT SLEPT 6HRS THIS SHIFT. WEEKLY SKIN ASSESSMENT DONE, PICTURES TAKEN AND PLACED IN PATIENT CHART. NO S/S OF DISTRESS. RESPIRATION EVEN AND UNLABORED WITH EQUAL RISE AND FALL OF THE CHEST, ON ROOM AIR. BED IN LOW LOCKED POSITION, SIDE RAILS UP X2 FOR SAFETY, CALL FAYE WITHIN REACH. WILL CONTINUE TO MONITOR Q15 FOR SAFETY, MOOD, AND BEHAVIOR.
[2021-08-11 08:00] VITALS: BP 123/66
[2021-08-11] MEDS: buPROPion 75 MG TABLET PO SCH ×2 (08:02→16:08)
[2021-08-11] MEDS: ATORVASTATIN 40 MG TABLET PO SCH (08:03)
[2021-08-11] MEDS: ESCITALOPRAM OXALATE (10 MG) 10 MG TABLET PO SCH (08:03)
[2021-08-11] MEDS: AMLODIPINE BESYLATE 10 MG TABLET PO SCH (08:03)
[2021-08-11] MEDS: LISINOPRIL (20MG) 20 MG TABLET PO SCH (08:17)
--- NOTE | 2021-08-11 09:34 | NUR ---
RN-CO: RECEIVED PATIENT AWAKE, DENIED PAIN AND DISCOMFORTS. HE ALSO DENIED SUICIDAL IDEATION. HE STATED " I FEEL BETTER NOW." I WILL CONTINUE TO MONITOR.
[2021-08-11 16:00] VITALS: BP 131/76
--- NOTE | 2021-08-11 19:56 | NUR ---
GPS RN OPENING NOTES: RECEIVED PATIENT LAYING ON BED. A/O X3, APPEARS DEPRESSED, PASSIVE, COOPERATIVE. DENIES PAIN AT THIS TIME. NO S/S OF DISTRESS. RESPIRATION EVEN AND UNLABORED WITH EQUAL RISE AND FALL OF THE CHEST, ON ROOM AIR. OFFERED FLUID AND SNACKS TOLERATED. WILL CONTINUE TO MONITOR Q15 FOR MOOD, SAFETY AND BEHAVIOR.
[2021-08-11 22:23] VITALS: BP 151/77
[2021-08-11] MEDS: TEMAZEPAM 7.5 MG CAPSULE PO PRN (22:57)
--- NOTE | 2021-08-11 22:58 | NUR ---
GPS RN NOTES: PATIENT REQUESTED FOR SLEEP MEDICATION. RESTORIL 7.5MG GIVEN PO AT 2257. WILL CONTINUE TO MONITOR.
[2021-08-12 06:37] VITALS: BP 151/77
--- NOTE | 2021-08-12 07:01 | NUR ---
GPS RN CLOSING NOTES: PATIENT IS CURRENTLY SLEEPING. PATIENT SLEPT 6HRS THIS SHIFT. NO S/S OF DISTRESS. RESPIRATION EVEN AND UNLABORED WITH EQUAL RISE AND FALL OF THE CHEST, ON ROOM AIR. BED IN LOW LOCKED POSITION, SIDE RAILS UP X2 FOR SAFETY, CALL FAYE WITHIN REACH. WILL CONTINUE TO MONITOR Q15 FOR SAFETY, MOOD, AND BEHAVIOR.
--- NOTE | 2021-08-12 07:24 | NUR ---
RN-CO: Patient was seen and examined by Dr Alexander with orders to discontinue hold and discharge patient home with home health today, noted. Patient denied suicidal and homicidal ideation. Denied AH/VH. No acute distress noted. Denied pain and discomforts.
--- NOTE | 2021-08-12 07:54 | NUR ---
RN-CO: Patient was seen by Dr Amaro and medically cleared him for discharge.
[2021-08-12] MEDS: ATORVASTATIN 40 MG TABLET PO SCH (07:55)
[2021-08-12] MEDS: buPROPion 75 MG TABLET PO SCH (07:55)
[2021-08-12] MEDS: AMLODIPINE BESYLATE 10 MG TABLET PO SCH (07:56)
[2021-08-12] MEDS: ESCITALOPRAM OXALATE (10 MG) 10 MG TABLET PO SCH (07:56)
[2021-08-12] MEDS: LISINOPRIL (20MG) 20 MG TABLET PO SCH (07:56)
[2021-08-12 08:00] VITALS: BP 140/78
--- NOTE | 2021-08-12 08:00 | NUR ---
received pt. in am alert and oriented x3.anxious to go home.
--- NOTE | 2021-08-12 08:02 | NUR ---
SW Discharge Note: Patient will return back home located at [address] [place] [address], [address], [address]; ([phone]). Patients son Jackson ([phone]) will cook pickled meat pt between 9AM-9:30AM. Patients friend Chadwick ([phone]) is aware. Patients sister Adriana ([phone]) is aware and agreeable. Patient is alert and oriented x4. Patient denies suicidal or homicidal ideation. Patient denies visual/auditory hallucinations. Patient will follow up with (Wet And Dry Sugar Bin Operator) Dr. Gerda Bird located at [address] [facility], [address], [place] [address]; ([phone]) on August 19, 2021, at 10AM. Patient was referred to for intake evaluation (Psychiatry) at [facility] located at [address] [place] [address]; ([phone]) on August 18 at 1:30PM via TELEHEALTH. SW sent patient up with [facility] was arranged (P:[phone], F: [phone]) for medication management, physical therapy, and nursing follow ups they will follow up with pt. for intake evaluation. Patient presents with euthymic mood and congruent affect.
--- NOTE | 2021-08-12 08:30 | NUR ---
RN-CO: Patient signed all discharge papers after RN explained to him and his upcoming appointment and he verbalized understanding. All belongings and valuables were given back to him. He will be escorted by staff services manager and UTILITY BILL COLLECTION CLERK to hospital lobby when his son arrive. Patient is a/o x4 , selfcare and able to make needs known.
--- NOTE | 2021-08-12 09:00 | NUR ---
pt. denies suicidal ideation,homicidal ideations.
--- NOTE | 2021-08-12 09:15 | NUR ---
all papers signed prescriptions for home ready.belonging sheet signed.pt. escorted to lobby for dc.son instructed on md follow ups and meds.son to transport home.
== END 2021-08-12 09:15 | disposition home or self-care (01) | DRG 881 ==
LOC: GPS 08-01 01:03
PROVIDERS: ADMIT Nurse Practitioner Psychiatric/Mental Health; ATTEND Nurse Practitioner Acute Care
DX: F32.9 Major depressive disorder, single episode, unspecified (principal); E87.1 Hypo-osmolality and hyponatremia; F29 Unspecified psychosis not due to a substance or known physiological condition; F41.9 Anxiety disorder, unspecified; G47.00 Insomnia, unspecified; I10 Essential (primary) hypertension; I25.10 Atherosclerotic heart disease of native coronary artery without angina pectoris; K21.9 Gastro-esophageal reflux disease without esophagitis; M10.9 Gout, unspecified; S30.0XXA Contusion of lower back and pelvis, initial encounter; W19.XXXA Unspecified fall, initial encounter; Y92.000 Kitchen of unspecified non-institutional (private) residence as the place of occurrence of the external cause; Z95.5 Presence of coronary angioplasty implant and graft; Z87.891 Personal history of nicotine dependence; Z85.828 Personal history of other malignant neoplasm of skin; Z82.49 Family history of ischemic heart disease and other diseases of the circulatory system; Z79.899 Other long term (current) drug therapy; E86.1 Hypovolemia; E87.6 Hypokalemia; D64.9 Anemia, unspecified; Z79.01 Long term (current) use of anticoagulants
CPT/HCPCS: 36415; 80048-TC; 80061-TC; 82962-TC; 83735-TC; 84100-TC; 84443-TC; 85025-TC; 87081-TC; 97112-TC; 97116-TC; 97530-TC; J7030